=== PATIENT | female | born 1975 | race African-American/Black ===

== ENCOUNTER 2017-01-08 15:42 | Emergency (ER) | payer OTHER ==
[2017-01-08 15:52] VITALS: BP 115/77; PULSE 90; RESP 20; TEMP 98.5; O2SAT 97
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
== END 2017-01-08 17:50 | disposition left against medical advice (07) ==
LOC: NEPK 15:42
DX: R51 Headache (principal); V47.6XXA Car passenger injured in collision with fixed or stationary object in traffic accident, initial encounter; Y92.411 Interstate highway as the place of occurrence of the external cause
CPT/HCPCS: 99283